=== PATIENT | male | born 1950 | race Caucasian/White ===

== ENCOUNTER → 2016-06-11 | Outpatient (CLI) | payer OTHER ==
[~2016-06-11] MED LIST: HYDR-3240 PO; LISI-167 PO; MELO-190 PO; NEBI5TAB2 PO; OMEP20TA62 PO; SENN1TAB67 PO; SIMV10TA3 PO; TRAM50TA2 PO
[2016-06-11 15:49] LABS: HEMOGLOBIN 14.8 g/dL (13.7-18.0)
[2016-06-11 16:01] LABS: ASPARTATE AMINO TRANSFERASE 16 U/L (15-37); BLOOD UREA NITROGEN 13 mg/dL (7-18)
[2016-06-11 16:17] LABS: PATH.CAST-FLAG NOT PRESENT; SPERM-FLAG NOT PRESENT; SRC-FLAG NOT PRESENT; XTAL-FLAG NOT PRESENT; YLC-FLAG NOT PRESENT
[2016-06-11 16:36] LABS: HIV 1&2 ANTIBODY SCREEN Nonreactive (Nonreactive); HIV-1 p24 ANTIGEN Nonreactive (Nonreactive)
[2016-06-11 17:16] LABS: HEPATITIS C VIRUS ANTIBODY Nonreactive (Nonreactive)
== END | disposition home or self-care (01) ==
LOC: STAR 14:21
PROVIDERS: ATTEND Orthopaedic Surgery Orthopaedic Surgery of the Spine
DX: Z01.811 Encounter for preprocedural respiratory examination (principal); I10 Essential (primary) hypertension; M43.8X4 Other specified deforming dorsopathies, thoracic region; M43.8X6 Other specified deforming dorsopathies, lumbar region; R79.1 Abnormal coagulation profile; Z87.891 Personal history of nicotine dependence; Z87.81 Personal history of (healed) traumatic fracture
CPT/HCPCS: 36415; 71020; 80053; 80074; 81001; 85025; 85610; 85651; 85730; 86703; 87899; 93005; G0435

== ENCOUNTER → 2018-02-26 | Outpatient (CLI) | payer MEDICARE, OTHER ==
[~2018-02-26] MED LIST changes: -MELO-190 PO; +MELO7.5T31 PO; +NEBI10TA3 PO; -NEBI5TAB2 PO; +NEBI5TAB3 PO
== END | disposition home or self-care (01) ==
LOC: STAR 10:39 → MERGE 10:39
PROVIDERS: ATTEND Surgery Vascular Surgery
DX: Z02.9 Encounter for administrative examinations, unspecified (principal)

== ENCOUNTER → 2018-02-26 | Outpatient (CLI) | payer MEDICARE ==
[2018-02-26 12:36] LABS: ALBUMIN 3.5 g/dL (3.4-5.0); ANION GAP 6 mmol/L (5-15); CALCIUM 8.4 mg/dL (8.5-10.1); CHLORIDE 110 mmol/L (98-107)
[2018-02-26 12:41] LABS: ALANINE AMINOTRANSFERASE 28 U/L (12-78); ALKALINE PHOSPHATASE 71 U/L (45-117); BILIRUBIN,TOTAL 0.4 mg/dL (0.2-1.0); CREATININE 1.06 mg/dL (0.7-1.3); TOTAL PROTEIN 7.3 g/dL (6.4-8.2)
== END | disposition home or self-care (01) ==
LOC: STAR 11:18
PROVIDERS: ATTEND Surgery Vascular Surgery
DX: Z01.818 Encounter for other preprocedural examination (principal)
CPT/HCPCS: 36415; 80053; 93005

== ENCOUNTER 2018-03-04 06:03 | Inpatient (IN) | payer MEDICARE ==
[2018-02-26 12:30] VITALS: BP 159/99
[~2018-03-04] VITALS: Ht 172.7 cm; Wt 104.3 kg
[2018-03-04] MEDS ORDERED: BUPIVACAINE/PF-EPI 0.5% 1:200K ONE (06:42)
[2018-03-04] MEDS ORDERED: LACTATED RINGERS 1,000 ML IV SCH (06:47)
[2018-03-04] MEDS ORDERED: FENTANYL PF 250 MCG/5ML ONE (07:10)
[2018-03-04] MEDS ORDERED: MIDAZOLAM 1 MG/ML, 2ML ONE (07:10)
[2018-03-04] MEDS ORDERED: SUCCINYLCHOLINE 20 MG/ML, 10ML ONE (07:29)
[2018-03-04] MEDS ORDERED: GLYCOPYRROLATE 0.2MG/1ML, 5ML ONE (07:29)
[2018-03-04] MEDS ORDERED: EPHEDRINE 50 MG/ML, 1ML ONE (07:29)
[2018-03-04] MEDS ORDERED: PROPOFOL 10 MG/ML, 20ML ONE (07:29)
[2018-03-04] MEDS ORDERED: CEFAZOLIN 1,000 MG ONE (07:29)
[2018-03-04] MEDS ORDERED: ONDANSETRON 2MG/ML, 2ML ONE (07:29)
[2018-03-04] MEDS ORDERED: ROCURONIUM 10 MG/ML,10ML ONE (07:29)
[2018-03-04] MEDS ORDERED: SUGAMMADEX 200 MG/2 ML IVPush ONE (07:45)
[2018-03-04] MEDS ORDERED: ONDANSETRON ODT 8 MG PO PRN (08:30)
[2018-03-04] MEDS ORDERED: hydrALAzine 20 MG/ML, 1ML IVPush PRN (09:30)
[2018-03-04] MEDS ORDERED: ONDANSETRON 2MG/ML, 2ML IVPush PRN (09:30)
[2018-03-04] MEDS ORDERED: morphine SULFATE 10 MG/ML, 1ML IVPush PRN (09:30)
[2018-03-04] MEDS: SODIUM CHLORIDE 0.9% 1,000 ML IV SCH ×2 (09:30→21:11)
[2018-03-04] MEDS ORDERED: OXYcodone IR 5MG TABLET PO PRN (09:30)
[2018-03-04] MEDS ORDERED: ACETAMINOPHEN 325 MG TABLET PO PRN (09:30)
[2018-03-04 09:31] VITALS: BP 167/85
[2018-03-04 09:47] LABS: BASOPHILS # (AUTO) 0.05 x10^3/uL (0-0.1); BASOPHILS % (AUTO) 1 % (0-1); EOSINOPHILS # (AUTO) 0.26 x10^3/uL (0-0.4); EOSINOPHILS % (AUTO) 3 % (1-7); LYMPHOCYTES # (AUTO) 1.18 x10^3/uL (1-3.4); LYMPHOCYTES % (AUTO) 14 % (22-44); MD NO; MEAN CORPUSCULAR HEMOGLOBIN 29.3 pg (27.5-34.5); MEAN CORPUSCULAR HGB CONC 33.6 g/dL (33.2-36.2); MEAN PLATELET VOLUME 8.5 fL (7.4-10.4); MONOCYTES # (AUTO) 0.52 x10^3/uL (0.2-0.8); MONOCYTES % (AUTO) 6 % (2-9); NEUTROPHILS # (AUTO) 6.32 x10^3/uL (1.8-6.8); NEUTROPHILS % (AUTO) 76 % (42-75); PLATELET COUNT 169 x10^3/uL (130-400); RED BLOOD COUNT 4.83 x10^6/uL (4.38-5.82); RED CELL DISTRIBUTION WIDTH 15.1 % (9.4-14.8)
[2018-03-04 09:55] LABS: ANION GAP 8 mmol/L (5-15); CALCIUM 8.1 mg/dL (8.5-10.1); CHLORIDE 108 mmol/L (98-107)
[2018-03-04] MEDS: MELOXICAM MC SCH ×2 (10:00→21:00)
[2018-03-04 10:01] LABS: CREATININE 1.13 mg/dL (0.7-1.3); TROPONIN I < 0.015 ng/mL (0.000-0.045)
[2018-03-04] MEDS ORDERED: HYDROCHLOROTHIAZIDE 12.5 MG CAPSULE PO ONE (11:00)
[2018-03-04] MEDS: AMLODIPINE 5 MG TABLET PO SCH (11:38)
[2018-03-04] MEDS: LISINOPRIL 10 MG TABLET PO SCH ×2 (11:39→21:07)
[2018-03-04] MEDS: HEPARIN 5,000 UNITS/ML, 1ML SQ SCH ×2 (11:39→21:05)
[2018-03-04 13:07] VITALS: BP 126/80
[2018-03-04 13:12] VITALS: BP 120/68
[2018-03-04 15:51] LABS: TROPONIN I < 0.015 ng/mL (0.000-0.045)
[2018-03-04 18:23] VITALS: BP 113/69
[2018-03-04] MEDS ORDERED: MELOXICAM 15 MG TABLET PO PRN (20:00)
[2018-03-04] MEDS ORDERED: SIMVASTATIN 10 MG TABLET PO SCH (21:00)
[2018-03-04 21:03] VITALS: BP 128/78
[2018-03-04] MEDS ORDERED: CALCIUM CARBONATE 500 MG TAB.CHEW PO PRN (22:00)
[2018-03-05 01:16] VITALS: BP 125/71
[2018-03-05] MEDS: HEPARIN 5,000 UNITS/ML, 1ML SQ SCH ×2 (05:18→13:43)
[2018-03-05] MEDS: SODIUM CHLORIDE 0.9% 1,000 ML IV SCH (05:58)
[2018-03-05 06:05] LABS: BASOPHILS # (AUTO) 0.05 x10^3/uL (0-0.1); BASOPHILS % (AUTO) 1 % (0-1); EOSINOPHILS # (AUTO) 0.02 x10^3/uL (0-0.4); EOSINOPHILS % (AUTO) 0 % (1-7); LYMPHOCYTES # (AUTO) 1.64 x10^3/uL (1-3.4); LYMPHOCYTES % (AUTO) 19 % (22-44); MD NO; MEAN CORPUSCULAR HEMOGLOBIN 28.8 pg (27.5-34.5); MEAN CORPUSCULAR VOLUME 87.5 fL (81-97); MEAN PLATELET VOLUME 8.6 fL (7.4-10.4); MONOCYTES # (AUTO) 1.01 x10^3/uL (0.2-0.8); MONOCYTES % (AUTO) 11 % (2-9); NEUTROPHILS # (AUTO) 6.13 x10^3/uL (1.8-6.8); NEUTROPHILS % (AUTO) 69 % (42-75); PLATELET COUNT 176 x10^3/uL (130-400); RED BLOOD COUNT 4.59 x10^6/uL (4.38-5.82); RED CELL DISTRIBUTION WIDTH 15.7 % (9.4-14.8)
[2018-03-05 06:22] LABS: ALBUMIN 3.3 g/dL (3.4-5.0); ANION GAP 8 mmol/L (5-15); CALCIUM 8.6 mg/dL (8.5-10.1); CHLORIDE 106 mmol/L (98-107)
[2018-03-05 06:35] LABS: ALANINE AMINOTRANSFERASE 25 U/L (12-78); ALKALINE PHOSPHATASE 64 U/L (45-117); BILIRUBIN,TOTAL 0.4 mg/dL (0.2-1.0); CREATININE 1.06 mg/dL (0.7-1.3); THYROID STIMULATING HORMONE 0.276 mIU/L (0.358-3.740)
[2018-03-05 07:10] VITALS: BP 135/69
[2018-03-05] MEDS ORDERED: REGADENOSON 0.4 MG/5 ML SYRINGE ONE (08:30)
[2018-03-05 08:38] VITALS: BP 167/93
[2018-03-05] MEDS: LISINOPRIL 10 MG TABLET PO SCH (08:39)
[2018-03-05] MEDS: AMLODIPINE 5 MG TABLET PO SCH (08:39)
[2018-03-05 13:38] VITALS: BP 144/82
[2018-03-05] MEDS ORDERED: HYDROCHLOROTH12.5 MG PO (14:27)
[2018-03-05] MEDS ORDERED: AMLO-150 PO (14:27)
== END 2018-03-05 16:20 | disposition home or self-care (01) | DRG 918 ==
LOC: OUT 06:03 → EDSTATUS 07:30 → ORIP 08:07 → 5SO 08:38 → DCLOUNGE 03-05 15:58
PROVIDERS: ADMIT Thoracic Surgery (Cardiothoracic Vascular Surgery); ATTEND Thoracic Surgery (Cardiothoracic Vascular Surgery)
DX: T88.59XA Other complications of anesthesia, initial encounter (principal); K43.2 Incisional hernia without obstruction or gangrene; R00.1 Bradycardia, unspecified; Z53.09 Procedure and treatment not carried out because of other contraindication; I27.20 Pulmonary hypertension, unspecified; E78.5 Hyperlipidemia, unspecified; F17.200 Nicotine dependence, unspecified, uncomplicated; G89.29 Other chronic pain; I10 Essential (primary) hypertension; Z88.0 Allergy status to penicillin; Z71.6 Tobacco abuse counseling; T41.295A Adverse effect of other general anesthetics, initial encounter; Y84.8 Other medical procedures as the cause of abnormal reaction of the patient, or of later complication, without mention of misadventure at the time of the procedure; Y92.234 Operating room of hospital as the place of occurrence of the external cause
CPT/HCPCS: 36415; 78452; 80048; 80053; 84439; 84443; 84484; 85025; 90656; 93005; 93017; 93306; G0378; J0690; J1644; J2250; J2405; J2704; J2785; J3010; J3490; A9502; C9898; J0330; J7030; J7120

== ENCOUNTER → 2018-04-02 | Outpatient (CLI) | payer MEDICARE ==
[~2018-04-02] MED LIST changes: +AMLO-150 PO; +HYDROCHLOROTH12.5 MG PO
== END | disposition home or self-care (01) ==
LOC: STAR 14:06
PROVIDERS: ATTEND Thoracic Surgery (Cardiothoracic Vascular Surgery)
DX: Z01.818 Encounter for other preprocedural examination (principal); K43.2 Incisional hernia without obstruction or gangrene; R00.0 Tachycardia, unspecified
CPT/HCPCS: 93005

== ENCOUNTER 2018-04-08 09:55 | Inpatient (IN) | payer MEDICARE ==
[~2018-04-08] VITALS: Ht 172.7 cm; Wt 104.2 kg
[~2018-04-08 09:55] MED LIST changes: +BUPIVACAINE/PF-EPI 0.5% 1:200K ONE
[2018-04-08 10:31] VITALS: BP 135/86
[2018-04-08] MEDS: LACTATED RINGERS 1,000 ML IV SCH ×3 (10:48→21:01)
[2018-04-08] MEDS ORDERED: FENTANYL PF 250 MCG/5ML ONE ×2 (13:50→15:23)
[2018-04-08] MEDS ORDERED: MIDAZOLAM 1 MG/ML, 2ML ONE (13:50)
[2018-04-08] MEDS ORDERED: hydrALAzine 20 MG/ML, 1ML IV PRN ×2 (15:00→17:00)
[2018-04-08] MEDS ORDERED: LABETALOL 5MG/ML, 20ML IV PRN (15:00)
[2018-04-08] MEDS ORDERED: MEPERIDINE/PF 25MG/0.5ML IVPush PRN (15:00)
[2018-04-08] MEDS ORDERED: ONDANSETRON 2MG/ML, 2ML IV PRN (15:00)
[2018-04-08] MEDS ORDERED: PROMETHAZINE 25 MG/ML, 1ML IV PRN (15:00)
[2018-04-08] MEDS ORDERED: DIAZEPAM 5 MG/ML, 2ML IVPush PRN (15:00)
[2018-04-08] MEDS ORDERED: PROMETHAZINE 12.5 MG SUPP PR PRN (17:00)
[2018-04-08] MEDS ORDERED: morphine SULFATE 10 MG/ML, 1ML IV PRN (17:00)
[2018-04-08] MEDS ORDERED: ONDANSETRON 2MG/ML, 2ML IVPush PRN (17:00)
[2018-04-08] MEDS ORDERED: ENALAPRILAT 1.25 MG/ML, 2ML IV PRN (17:00)
[2018-04-08] MEDS ORDERED: PROMETHAZINE 25 MG/ML, 1ML IM PRN (17:00)
[2018-04-08] MEDS ORDERED: HYDROcodone/APAP 7.5-325MG/15ML UDC PO PRN (17:00)
[2018-04-08] MEDS ORDERED: LORazepam 2 MG/ML, 1ML IV PRN (17:00)
[2018-04-08] MEDS ORDERED: DIPHENHYDRAMINE 50 MG/ML, 1ML IV PRN (17:00)
[2018-04-08] MEDS ORDERED: FENTANYL PF 100 MCG/2ML ONE (17:07)
[2018-04-08] MEDS ORDERED: HYDROmorphone 2 MG/ML, 1ML ONE (17:07)
[2018-04-08] MEDS: FENTANYL PF 100 MCG/2ML IV PRN ×2 (17:11→17:24)
[2018-04-08] MEDS: HYDROmorphone 2 MG/ML, 1ML IVPush PRN ×2 (17:11→17:23)
[2018-04-08] MEDS ORDERED: PROMETHAZINE 25 MG/ML, 1ML ONE (17:17)
[2018-04-08] MEDS ORDERED: METOPROLOL 1 MG/ML, 5ML ONE (17:40)
[2018-04-08] MEDS: METOPROLOL 1 MG/ML, 5ML IVPush PRN ×2 (17:40→18:20)
[2018-04-08] MEDS ORDERED: SUCCINYLCHOLINE 20 MG/ML, 10ML ONE (18:01)
[2018-04-08] MEDS ORDERED: GLYCOPYRROLATE 0.2MG/1ML, 5ML ONE (18:01)
[2018-04-08] MEDS ORDERED: ROCURONIUM 10MG/ML,5ML ONE (18:01)
[2018-04-08] MEDS ORDERED: ONDANSETRON 2MG/ML, 2ML ONE (18:01)
[2018-04-08] MEDS ORDERED: PROPOFOL 10 MG/ML, 20ML ONE (18:01)
[2018-04-08] MEDS ORDERED: DEXAMETHASONE 4 MG/ML, 1ML ONE (18:01)
[2018-04-08] MEDS ORDERED: CEFAZOLIN 1,000 MG ONE (18:01)
[2018-04-08] MEDS ORDERED: NEOSTIGMINE 1 MG/ML, 10ML ONE (18:01)
[2018-04-08] MEDS: FAMOTIDINE 20 MG/2 ML IV SCH (19:00)
[2018-04-08] MEDS ORDERED: METOPROLOL 1 MG/ML, 5ML IVPush ONE (19:30)
[2018-04-08] MEDS: KETOROLAC 30 MG/1 ML IV PRN (21:00)
[2018-04-08 21:41] VITALS: BP 150/85
[2018-04-09 00:03] VITALS: BP 152/94
[2018-04-09 00:18] VITALS: BP 161/87
[2018-04-09] MEDS: LACTATED RINGERS 1,000 ML IV SCH ×2 (02:35→04:47)
[2018-04-09] MEDS: KETOROLAC 30 MG/1 ML IV PRN (03:21)
[2018-04-09 04:22] VITALS: BP 146/79
[2018-04-09] MEDS: FAMOTIDINE 20 MG/2 ML IV SCH (06:37)
[2018-04-09 07:20] VITALS: BP 157/89
[2018-04-09] MEDS ORDERED: LISINOPRIL 10 MG TABLET PO SCH (09:00)
[2018-04-09] MEDS ORDERED: ENOXAPARIN 40 MG/0.4 ML SQ SCH (09:00)
[2018-04-09] MEDS ORDERED: HYDR473S51 PO (11:08)
[2018-04-09] MEDS ORDERED: SIMVASTATIN 10 MG TABLET PO SCH (21:00)
== END 2018-04-09 11:59 | disposition home or self-care (01) | DRG 327 ==
LOC: OUT 09:55 → EDSTATUS 12:30 → ORIP 16:46 → 4NOR 18:57 → DCLOUNGE 04-09 11:43
PROVIDERS: ADMIT Thoracic Surgery (Cardiothoracic Vascular Surgery); ATTEND Thoracic Surgery (Cardiothoracic Vascular Surgery)
PROC: 0BUT4JZ Supplement Diaphragm with Synthetic Substitute, Percutaneous Endoscopic Approach (ICD-10-PCS; 2018-04-08)
PROC: 0DV44ZZ Restriction of Esophagogastric Junction, Percutaneous Endoscopic Approach (ICD-10-PCS; principal; 2018-04-08 13:30)
DX: K44.9 Diaphragmatic hernia without obstruction or gangrene (principal); E44.0 Moderate protein-calorie malnutrition; K21.9 Gastro-esophageal reflux disease without esophagitis; K43.2 Incisional hernia without obstruction or gangrene; I10 Essential (primary) hypertension; J44.9 Chronic obstructive pulmonary disease, unspecified
CPT/HCPCS: G0378; J0690; J1100; J1170; J1885; J2250; J2405; J2550; J2704; J2710; J3010; J3490; J0330; J0360; J7120; Q4116